=== PATIENT | male | born 1985 | race Caucasian/White ===

== ENCOUNTER 2018-12-28 08:25 | Emergency (ER) | payer OTHER ==
[~2018-12-28 08:25] MED LIST: ALBU2.5V8 IH
[2018-12-28 08:39] VITALS: BP 128/88
[2018-12-28] MEDS ORDERED: SULF1TAB24 PO (09:08)
[2018-12-28] MEDS ORDERED: AMOX1TAB61 PO (09:08)
--- NOTE | 2018-12-28 09:09 | PHYS DOC ---
Past History Past Medical History: No Pertinent History Past Surgical History: No Surgical History Alcohol Use: Occasionally Drug Use: None Adult General Chief Complaint Chief Complaint: EYE PROBLEMS HPI HPI 33-year-old male presents with right periorbital swelling and possible cellulitis. The patient was stung by a wasp above his nose just right of center 2 days ago. He had immediate pain but continued to work. Yesterday he had swelling of the right eye. He assumed this was just a reaction to the sting. He has been taking Benadryl and ibuprofen. Today when he woke up, the patient had a nearly swollen shut right eye. He also has some inferior periorbital swelling of the left eye. He came in because things seem to be getting worse not better. Patient has no known allergy to wasp stings. He denies fever or chills. Review of Systems Review of Systems Constitutional: Denies fever or chills [] Eyes: Denies change in visual acuity. Periorbital swelling of the right eye greater than left.[] HENT: Denies nasal congestion or sore throat [] Respiratory: Denies cough or shortness of breath [] Cardiovascular: No additional information not addressed in HPI [] GI: Denies abdominal pain, nausea, vomiting, bloody stools or diarrhea [] : Denies dysuria or hematuria [] Musculoskeletal: Denies back pain or joint pain [] Integument: Denies rash or skin lesions [] Neurologic: Denies headache, focal weakness or sensory changes [] Endocrine: Denies polyuria or polydipsia [] All other systems were reviewed and found to be within normal limits, except as documented in this note. Allergies Allergies Allergies Coded Allergies Type Severity Reaction Last Updated Verified No Known Drug Allergies 05/15/14 No Physical Exam Physical Exam Constitutional: Well developed, well nourished, no acute distress, non-toxic appearance. [] HENT: Normocephalic, atraumatic, bilateral external ears normal, oropharynx moist, no oral exudates, nose normal. [] Eyes: PERRLA, EOMI, conjunctiva normal, thin discharge in right eye. Right preorbital area quite edematous, with warm skin. Left inferior orbital area mildly swollen.[] Neck: Normal range of motion, no tenderness, supple, no stridor. [] Cardiovascular:Heart rate regular rhythm, no murmur [] Lungs & Thorax: Bilateral breath sounds clear to auscultation [] Abdomen: Bowel sounds normal, soft, no tenderness, no masses, no pulsatile masses. [] Skin: Warm, dry, no erythema, no rash. [] Back: No tenderness, no CVA tenderness. [] Extremities: No tenderness, no cyanosis, no clubbing, ROM intact, no edema. [] Neurologic: Alert and oriented X 3, normal motor function, normal sensory function, no focal deficits noted. [] Psychologic: Affect normal, judgement normal, mood normal. [] Current Patient Data Vital Signs Vital Signs Date Time Temp Pulse Resp B/P (MAP) Pulse Ox O2 Delivery O2 Flow Rate FiO2 12/28/18 08:39 98.1 91 18 100 Room Air EKG EKG [] Radiology/Procedures Radiology/Procedures [] Course & Med Decision Making Course & Med Decision Making Pertinent Labs and Imaging studies reviewed. (See chart for details) Based on the history and physical exam, and concern for preseptal cellulitis. I will give the patient a shot of Solu-Medrol to help with the swelling, and discharge him with 7 days of Bactrim and Augmentin for cellulitis. I informed him that if this does not start to improve his symptoms or if the swelling worsens or if he develops a fever, he should return to the emergency room. Patient states verbal understanding. He is stable for discharge at this time. [] Dragon Disclaimer Dragon Disclaimer This electronic medical record was generated, in whole or in part, using a voice recognition dictation system. Departure Departure: Impression: Primary Impression: Preseptal cellulitis of right eye Disposition: 01 HOME, SELF-CARE Condition: STABLE Referrals: MJ MARTINEZ MD (PCP) Patient Instructions: Periorbital Cellulitis Scripts Amoxicillin/Potassium Clav (AUGMENTIN 875-125 TABLET) 1 Each Tablet 1 TAB PO BID for cellulitis, #14 TAB Prov: CAROLA ODOM DO 12/28/18 Sulfamethoxazole/Trimethoprim (BACTRIM DS TABLET) 1 Each Tablet 1 TAB PO BID for cellulitis, #14 TAB Prov: CAROLA ODOM DO 12/28/18 CAROLA ODOM DO Dec 28, 2018 09:09
[2018-12-28] MEDS ORDERED: methylPREDNISolone SOD SUCC PF 125 MG/2 ML VIAL. IV ONE (09:30)
== END 2018-12-28 09:14 | disposition home or self-care (01) ==
LOC: ER 08:25
DX: L03.213 Periorbital cellulitis (principal)
CPT/HCPCS: 96374; 99284; J2930

== ENCOUNTER 2018-12-28 14:49 | Emergency (ER) | payer OTHER ==
[~2018-12-28] VITALS: Ht 172.7 cm; Wt 68.0 kg
[~2018-12-28 14:49] MED LIST changes: +AMOX1TAB61 PO; +SULF1TAB24 PO
--- NOTE | 2018-12-28 14:57 | PHYS DOC ---
Past History Past Medical History: No Pertinent History Past Surgical History: No Surgical History Alcohol Use: Occasionally Drug Use: None Adult General Chief Complaint Chief Complaint: ALTERED MENTAL STATUS HPI HPI 33-year-old male returned to the emergency room with a swollen right eye. I saw the patient earlier today for a wasp sting 2 days ago. He was discharged with 2 antibiotic and prednisone for preseptal cellulitis. The patient was brought back here by his father because he seemed to be in consciousness and difficult to wake up. The patient admits to taking [address] He has taken 1 each of the Bactrim and Augmentin. Patient doesn't remember a whole lot about the day since he left the hospital. He states he also took 3 800mg tabs. He has no new complaints. Review of Systems Review of Systems Constitutional: Denies fever or chills [] Eyes: Denies change in visual acuity, redness, or eye pain [] HENT: Denies nasal congestion or sore throat [] Respiratory: Denies cough or shortness of breath [] Cardiovascular: No additional information not addressed in HPI [] GI: Denies abdominal pain, nausea, vomiting, bloody stools or diarrhea [] : Denies dysuria or hematuria [] Musculoskeletal: Denies back pain or joint pain [] Integument: Right periorbital swelling[] Neurologic: Denies headache, focal weakness or sensory changes [] Endocrine: Denies polyuria or polydipsia [] All other systems were reviewed and found to be within normal limits, except as documented in this note. Allergies Allergies Allergies Coded Allergies Type Severity Reaction Last Updated Verified No Known Drug Allergies 05/15/14 No Physical Exam Physical Exam Constitutional: Well developed, well nourished, no acute distress, non-toxic appearance. [] HENT: Normocephalic, atraumatic, bilateral external ears normal, oropharynx [address], no oral exudates, nose normal. [] Eyes: PERRLA, EOMI, conjunctiva normal, no discharge. [] Neck: Normal range of motion, no tenderness, supple, no stridor. [] Cardiovascular:Heart rate regular rhythm, no murmur [] Lungs & Thorax: Bilateral breath sounds clear to auscultation [] Abdomen: Bowel sounds normal, soft, no tenderness, no masses, no pulsatile masses. [] Skin: Right eye periorbital swelling. Decreased erythema versus earlier visit.[] Back: No tenderness, no CVA tenderness. [] Extremities: No tenderness, no cyanosis, no clubbing, ROM intact, no edema. [] Neurologic: Alert and oriented X 3, normal motor function, normal sensory function, no focal deficits noted. [] Psychologic: Affect normal, judgement normal, mood normal. [] EKG EKG [] Radiology/Procedures Radiology/Procedures [] Course & Med Decision Making Course & Med Decision Making Pertinent Labs and Imaging studies reviewed. (See chart for details) The patient's labs are unremarkable. It took 2 L of saline before the patient could urinate. I believe his swelling is better than it was this morning. After period of rest, the patient woke up and was much more aware. He took 4 Benadryl at home. He understands now that this was too much made him very out of it. He is completely alert and aware at this time. He is stable for discharge. [] Dragon Disclaimer Dragon Disclaimer This electronic medical record was generated, in whole or in part, using a voice recognition dictation system. Departure Departure: Impression: Primary Impression: Medication overdose Disposition: HOME, SELF-CARE Condition: STABLE Referrals: MJ MARTINEZ MD (PCP) Problem Qualifiers Primary Impression: Medication overdose Encounter type: initial encounter Injury intent: accidental or unintentional Qualified Codes: T50.901A - Poisoning by unspecified drugs, medicaments and biological substances, accidental (unintentional), initial encounter CAROLA ODOM DO Dec 28, 2018 14:57
[2018-12-28] MEDS ORDERED: IV NORMAL SALINE 1,000ML 1,000 ML IV ONE (15:00)
[2018-12-28 15:24] LABS: BASO % 0 % (0-3); EOS % 0 % (0-3); HEMATOCRIT 48.2 % (39.0-53.0); HEMOGLOBIN 16.5 g/dL (13.0-17.5); LYMPH # 0.7 x10^3/uL (1.0-4.8); LYMPH % 8 % (24-48); MEAN CORPUSCULAR HEMOGLOBIN 34 pg (25-35); MEAN CORPUSCULAR HGB CONC 34 g/dL (31-37); MEAN CORPUSCULAR VOLUME 100 fL (79-100); MONO # 0.1 x10^3/uL (0.0-1.1); MONO % 1 % (0-9); NEUT % 91 % (31-73); PLATELET COUNT 289 x10^3/uL (140-400); RED BLOOD COUNT 4.84 x10^6/uL (4.30-5.70); RED CELL DISTRIBUTION WIDTH 13.6 % (11.5-14.5); WHITE BLOOD COUNT 8.8 x10^3/uL (4.0-11.0)
[2018-12-28 15:33] LABS: ALBUMIN 4.1 g/dL (3.4-5.0); ALBUMIN/GLOBULIN RATIO 1.1 (1.0-1.7); CALCIUM 9.2 mg/dL (8.5-10.1); GFR 86.1; POTASSIUM 3.8 mmol/L (3.5-5.1); TOTAL BILIRUBIN 0.2 mg/dL (0.2-1.0); TOTAL PROTEIN 7.7 g/dL (6.4-8.2)
[2018-12-28 16:16] VITALS: BP 146/93
== END 2018-12-28 16:28 | disposition home or self-care (01) ==
LOC: ER 14:49
DX: T45.0X1A Poisoning by antiallergic and antiemetic drugs, accidental (unintentional), initial encounter (principal); Y92.89 Other specified places as the place of occurrence of the external cause
CPT/HCPCS: 36415; 80053; 85025; 99284-25; J7030